=== PATIENT | male | born 1940 | race Caucasian/White ===

== ENCOUNTER → 2023-04-02 13:08 | Outpatient (REF) | payer BC, SELFPAY | LOC: RAD 13:08 | PROVIDERS: ATTENDING PHYSICIAN Internal Medicine Cardiovascular Disease; FAMILY PHYSICIAN Internal Medicine | DX: I65.23 Occlusion and stenosis of bilateral carotid arteries (principal) | CPT/HCPCS: 93880 ==

== ENCOUNTER → 2023-04-16 17:14 | Outpatient (REF) | payer BC, SELFPAY | LOC: RAD 17:14 | PROVIDERS: ATTENDING PHYSICIAN Family Medicine | DX: K59.00 Constipation, unspecified (principal); R10.84 Generalized abdominal pain | CPT/HCPCS: 74018 ==

== ENCOUNTER 2023-04-20 11:19 | Emergency (ER) | payer BC, SELFPAY ==
[2023-04-20 11:37] VITALS: BP 162/73
[2023-04-20 15:14] VITALS: BMI 22.1
[2023-04-20 15:22] VITALS: BP 153/68
--- NOTE | 2023-04-20 16:15 | ED.GENMED ---
History of Present Illness
<CACHORRO Steven - Last Filed: 04/21/23 18:40>
General
Chief Complaint: Bowel Problem
Source: patient
Exam Limitations: none
Time Seen by Provider: 04/20/23 14:38
Nursing documentation reviewed up to this point in time: agreed with
Travel History
Have you had any contact with someone who has COVID-19?: No
Do you have any symptoms of coronavirus? Fever > 100 degrees, chills, cough, shortness of breath, sore throat, loss of taste or smell, muscle aches, or headache?: No
History of Present Illness
History of Present Illness:
Patient is 82-year-old male that presents to the ER complaining of constipation. Patient has not had a bowel movement for at least 8 to 9 days. He complains of mild nausea but has been eating and has not no vomiting. His family doctor is aware.
He has been on lactulose without relief and also used an enema.
Patient had outpt xray on . I did review this is x-ray shows no evidence of intestinal obstruction mild fecal material in the right colon which is improved.
Past History
<CACHORRO Steven - Last Filed: 04/21/23 18:40>
Past History
ED Past Medical History: CAD, CVA (History of TIA.), HTN and NIDDM
ED Past Surgical History: Cardiac (CABG)
Social History
Tobacco: Non-smoker
Alcohol: Occasional
Drug: None
Personal:
Living: with family
Employment: Retired
Family History
Family History: Other (Noncontributory)
Review of Systems
<CACHORRO Steven - Last Filed: 04/21/23 18:40>
Review of Systems
Allergies reviewed?: Yes
All Other Systems: ROS reviewed and negative except as documented in HPI and ROS
Constitutional: Reports no symptoms
ABD/GI: Reports nausea, constipated and other (abdominal discomfort); Denies abdominal pain, vomiting or diarrhea
: Reports no symptoms
Musculoskeletal: Reports no symptoms
Skin: Reports no symptoms
Neurological: Reports no symptoms
<Irving Jerez Jr., PA-C - Last Filed: 04/20/23 23:44>
Physical Exam
Physical Exam:
GENERAL: Alert , in no apparent distress
EYE: pupils equal and reactive
NECK: Supple, no significant adenopathy.
ENT: o/p clr, mmm.
CARDIAC: Regular rate and rhythm .
LUNGS: Clear breath sounds bilaterally, no acute respiratory distress, no wheezes/rales/rhonchi
ABDOMEN: Soft, without focal tenderness, no r/g, no cvat
NEUROLOGICAL: Alert and oriented, no focal neuro deficits
SKIN: Warm and dry, skin intact.
MUSCULOSKELETAL: No edema, well perfused.
PSYCH: Normal and appropriate interaction.
Course
<CACHORRO Steven - Last Filed: 04/21/23 18:40>
Orders/Labs/Results
Orders:
Orders
04/20/23 16:16
Obstruct Series W/PA Chest [CR Obstruct Series W/pa Chest] Urgent
Comment:
Reason For Exam: constipation
04/20/23 17:27
Enema- Treatment ONCE
Type: Milk of Molasses
Amount: x1
04/20/23 19:16
IV Insert/Care/Rem.- Treatment PRN
04/20/23 19:56
Iohexol [Omnipaque] See Protocol PO NOW STA
04/20/23 19:58
Complete Blood Count/With Diff Urgent
04/20/23 20:38
Comprehensive Metabolic Panel Urgent
Lipase Urgent
04/20/23 20:49
0.9% Sodium Chloride 500 ml [Nss] 500 ml IV BOLUS
04/20/23 21:15
CT Abd/pel W Iv And Oral Contr Urgent
Comment:
Reason For Exam: abd pain constipation
Iohexol [Omnipaque] See Protocol PO NOW STA
04/20/23 23:40
Amoxicillin 875 mg/Clav 125 mg [Augmentin 875 mg/125 mg] 1 tablet PO NOW STA
Abnormal Lab Results
04/20/23 04/20/23 04/20/23
16: 18:30 19:58
RBC 3.77 L 10^6/uL
(4.70-6.10)
Hgb 12.2 L g/dL
(13.0-18.0)
Hct 33.4 L %
(39.0-52.0)
MCH 32.4 H pg
(27.0-31.0)
MPV 11.2 H fL
(7.4-10.4)
Absolute Lymphs (auto) 0.8 L 10^3/uL
(1.2-3.4)
Lymphocytes % 13.1 L %
(20.5-51.1)
Sodium
BUN
Creatinine
Glucose
POC Glucose 194 H mg/dl 180 H mg/dl
(70-99) (70-99)
04/20/23
20:38
RBC
Hgb
Hct
MCH
MPV
Absolute Lymphs (auto)
Lymphocytes %
Sodium 133 L mmol/L
(135-145)
BUN 33 H mg/dl
(9-20)
Creatinine 1.4 H mg/dL
(0.7-1.3)
Glucose 224 H mg/dl
(70-99)
POC Glucose
04/20/23 19:58
04/20/23 20:38
Vital Signs
Initial and Last Documented VS:
Initial Vital Signs
Temp Pulse Resp BP Pulse Ox
98.1 F 65 18 162/73 97
04/20/23 11:37 04/20/23 11:37 04/20/23 11:37 04/20/23 11:37 04/20/23 11:37
Last Documented Vital Signs
Temp Pulse Resp BP Pulse Ox
98.1 F 60 16 178/72 97
04/20/23 11:37 04/21/23 00:02 04/21/23 00:02 04/21/23 00:02 04/21/23 00:02
<Irving Jerez Jr., PA-C - Last Filed: 04/20/23 23:44>
Orders/Labs/Results
Orders:
Orders
04/20/23 16:16
Obstruct Series W/PA Chest [CR Obstruct Series W/pa Chest] Urgent
Comment:
Reason For Exam: constipation
04/20/23 17:27
Enema- Treatment ONCE
Type: Milk of Molasses
Amount: x1
04/20/23 19:16
IV Insert/Care/Rem.- Treatment PRN
04/20/23 19:56
Iohexol [Omnipaque] See Protocol PO NOW STA
04/20/23 19:58
Complete Blood Count/With Diff Urgent
04/20/23 20:38
Comprehensive Metabolic Panel Urgent
Lipase Urgent
04/20/23 20:49
0.9% Sodium Chloride 500 ml [Nss] 500 ml IV BOLUS
04/20/23 21:15
CT Abd/pel W Iv And Oral Contr Urgent
Comment:
Reason For Exam: abd pain constipation
Iohexol [Omnipaque] See Protocol PO NOW STA
04/20/23 23:40
Amoxicillin 875 mg/Clav 125 mg [Augmentin 875 mg/125 mg] 1 tablet PO NOW STA
Abnormal Lab Results
04/20/23 04/20/23 04/20/23
16:24 18:30 19:58
RBC 3.77 L 10^6/uL
(4.70-6.10)
Hgb 12.2 L g/dL
(13.0-18.0)
Hct 33.4 L %
(39.0-52.0)
MCH 32.4 H pg
(27.0-31.0)
MPV 11.2 H fL
(7.4-10.4)
Absolute Lymphs (auto) 0.8 L 10^3/uL
(1.2-3.4)
Lymphocytes % 13.1 L %
(20.5-51.1)
Sodium
BUN
Creatinine
Glucose
POC Glucose 194 H mg/dl 180 H mg/dl
(70-99) (70-99)
04/20/23
20:38
RBC
Hgb
Hct
MCH
MPV
Absolute Lymphs (auto)
Lymphocytes %
Sodium 133 L mmol/L
(135-145)
BUN 33 H mg/dl
(9-20)
Creatinine 1.4 H mg/dL
(0.7-1.3)
Glucose 224 H mg/dl
(70-99)
POC Glucose
04/20/23 19:58
04/20/23 20:38
Vital Signs
Initial and Last Documented VS:
Initial Vital Signs
Temp Pulse Resp BP Pulse Ox
98.1 F 65 18 162/73 97
04/20/23 11:37 04/20/23 11:37 04/20/23 11:37 04/20/23 11:37 04/20/23 11:37
Last Documented Vital Signs
Temp Pulse Resp BP Pulse Ox
98.1 F 60 16 178/72 97
04/20/23 11:37 04/21/23 00:02 04/21/23 00:02 04/21/23 00:02 04/21/23 00:02
<CACHORRO Steven - Last Filed: 04/21/23 18:40>
MDM/Problems Addressed
Differential Diagnosis Includes:
Not limited to: Bowel obs, diverticulitis
MDM/Problems Addressed:
Patient is 82-year-old male who presented to the ER complaining of constipation no bowel movement in at least 8 days. Seen by family doctor and started on lactulose. Patient had an outpatient x-ray. Patient denies any nausea vomiting. X-ray from
04/16 shows mild fecal material in the right colon no evidence of intestine obstruction. Patient requested and was given enema here however x-ray not truly consistent with constipation. On reexam patient very minimally tender lower abdominal region
will CT. Patient mentions he has some renal insufficiency last creatinine (02/10: 1.5 )oral contrast started will wait for chemistries then order ct. nml wbc. CAre of patient at this time transferred to BRUNO Bragg.
<Irving Jerez Jr., PA-C - Last Filed: 04/20/23 23:44>
MDM/Problems Addressed
MDM/Problems Addressed:
Patient is 82-year-old male who presented to the ER complaining of constipation no bowel movement in at least 8 days. Seen by family doctor and started on lactulose. Patient had an outpatient x-ray. Patient denies any nausea vomiting. X-ray from
04/16 shows mild fecal material in the right colon no evidence of intestine obstruction. Patient requested and was given enema here however x-ray not truly consistent with constipation. On reexam patient very minimally tender lower abdominal region
will CT. Patient mentions he has some renal insufficiency last creatinine (02/10: 1.5 )oral contrast started will wait for chemistries then order ct. nml wbc. CAre of patient at this time transferred to Kathleen Jerez PAC.
Ed Solitario PA-C//CT report received patient with potential proctitis and enteritis. Patient claims that he is now asymptomatic and has no abdominal pain ongoing. He was able to have a bowel movement. It appears unlikely that patient has emergent
pathology at this time it was he was offered to come into the hospital he feels symptoms are but he significantly preferred going home. He started on Augmentin and advised for very close primary care follow-up. Return precautions given.
<Irving Jerez Jr., PA-C - Last Filed: 04/20/23 23:44>
*Critical Care Note
Total Time (30-74mins, 75-104mins- exclusive of procedures): Not Applicable
ED Attending Note
<CACHORRO Steven - Last Filed: 04/21/23 18:40>
-
Portions of this chart may have been created with voice recognition software.� Occasional wrong word or��sound alike� substitutions may have occurred due to the inherent limitations of voice recognition software.
Discharge Plan
Departure
Patient Disposition: Home (Routine Discharge)
Date of Disposition: 04/20/23
Time of Disposition: 23:42
Patient with high blood pressure during this ER visit?: No
Condition: Good
Covid-19: Not Applicable
Discharge Problem:
Proctitis
Instructions: Constipation, Adult (DC)
Prescriptions:
New
amoxicillin-pot clavulanate 875-125 mg tablet
1 tab PO Q12H 7 Days Qty: 14 0RF
No Action
insulin aspart U-100 [Novolog FlexPen U-100 Insulin] 300 UNITS/3 ML insulin pen
5 - 8 units SC AC
Patient Comments:
SLIDING SCALE WITH BREAKFAST AND DINNER
Rx Instructions:
Sliding scale
zinc acetate 50 mg (zinc) Capsule
50 mg PO DAILY
pantoprazole 40 mg Tablet,Delayed Release (Dr/Ec)
40 mg PO DAILY 30 Days Qty: 30 0RF
acetaminophen 325 mg Tablet
650 mg PO Q4HPRN PRN (Reason: MILD PAIN) 30 Days Qty: 100 0RF
ascorbate calcium (vitamin C) 500 mg Tablet
500 mg PO DAILY
multivitamin Tablet
1 tab PO DAILY
coQ10 (ubiquinol) 100 mg Capsule
100 mg PO DAILY
Probiotic 3 billion cell Capsule
3,000 mmu cells PO DAILY
digestive enzymes Tablet
1 tab PO DAILY
Neuriva Original 100-100 mg Capsule
1 cap PO DAILY
clopidogrel 75 mg tablet
75 mg PO DAILY Qty: 90 3RF
lutein 20 mg Capsule
20 mg PO DAILY
curcumin-phosphatidylcholine 500 mg Capsule
50 mg PO DAILY
milk thistle
200 mg PO BID
olive leaf extract
1 cap PO DAILY
amlodipine 10 mg Tablet
10 mg PO DAILY Qty: 30 0RF
Rx Instructions:
Pleaes obtain refills from PCP/Cardiology
hydrochlorothiazide 25 mg Tablet
25 mg PO DAILY Qty: 30 0RF
Rx Instructions:
Pleaes obtain refills from PCP/Cardiology
metoprolol succinate 25 mg Tablet Extended Release 24 Hr
25 mg PO DAILY Qty: 30 0RF
Rx Instructions:
Pleaes obtain refills from PCP/Cardiology
Insulin Glargine Lantus [Lantus] 20 UNITS
Subcutaneous Insulin Syringe [Syringe-Insulin] 0 UNIT
As Directed mls/hr SC DAILY
Ordered By: Lauren Beaver PA-C
Last Taken: Unknown
aspirin 81 mg Tablet,Delayed Release (Dr/Ec)
81 mg PO DAILY Qty: 30 0RF
Referrals:
Jesús Sierra MD [Active] - Follow up in 5-7 days
Nereida Phillips MD [Family Provider] -
Activity Restrictions/Additional Instructions:
You came to the emergency department today with concerns of constipation abdominal pain. You are found to have potential proctitis and constipation. Please take the Augmentin twice daily for the next 7 days and follow-up closely with GI your
primary care doctor. Return to the emergency department immediately for any worsening, new or concerning symptoms.
Interventions
Interventions:
*Risk Screen - Suicide Last Done: 04/20/23 15:16
*General Assessment Last Done: 04/20/23 11:37
*Neglect/Abuse Screening Last Done: 04/20/23 11:37
ED- Fall Risk Assessment Last Done: 04/20/23 15:20
*ED COVID-19 Vaccine History Last Done: 04/20/23 15:14
*Nursing Disposition Last Done: 04/21/23 00:15
PE-Pjpizy-Wxalqpjamp Assessment Last Done: 04/20/23 20:36
Discharge Date and Time
Discharge Date/Time: 04/21/23 00:15
[2023-04-20 16:26] LABS: Glucose - Point of Care 194 mg/dl (70-99)
[2023-04-20 18:33] LABS: Glucose - Point of Care 180 mg/dl (70-99)
[2023-04-20 20:09] VITALS: BP 137/64
[2023-04-20 20:19] LABS: % Basophils 0.5 % (0-2); % Eosinophils 1.4 % (0-6); % Immature Granulocytes 0.5 % (0-0.5); % Lymphocytes 13.1 % (20.5-51.1); % Monocytes 9.3 % (1.7-9.3); % Neutrophils 75.2 % (42.2-75.2); Absolute Eosinophils 0.1 10^3/uL (0-0.7); Absolute Lymphocytes 0.8 10^3/uL (1.2-3.4); Absolute Monocytes 0.5 10^3/uL (0.1-0.6); Absolute Neutrophils 4.4 10^3/uL (1.4-6.5); Hematocrit 33.4 % (39.0-52.0); Hemoglobin 12.2 g/dL (13.0-18.0); Mean Corp Hgb Conc. 36.5 g/dL (33.0-37.0); Mean Corpuscular Hgb 32.4 pg (27.0-31.0); Mean Corpuscular Volume 88.6 fL (80.0-94.0); Mean Platelet Volume 11.2 fL (7.4-10.4); Nucleated Red Blood Cells % 0 % (-); Platelet Count 187 10^3/uL (130-400); Red Blood Cell Count 3.77 10^6/uL (4.70-6.10); Red Cell Dist. Width 11.9 % (11.5-14.5); White Blood Cell Count 5.8 10^3/uL (4.8-10.8)
[2023-04-20] MEDS: OMNIPAQUE 50 ML PO (20:39)
[2023-04-20 21:12] LABS: ALT (SGPT) 22 U/L (0-50); AST (SGOT) 23 U/L (17-59); Albumin 3.5 g/dl (3.5-5.0); Alkaline Phosphatase 64 U/L (38-126); Blood Urea Nitrogen 33 mg/dl (9-20); Calcium 9.2 mg/dl (8.4-10.2); Carbon Dioxide 26 mmol/L (22-30); Chloride 99 mmol/L (98-107); Estimated Creatinine Clearance 36 ml/min; Glucose 224 mg/dl (70-99); Potassium 3.9 mmol/L (3.5-5.1); Sodium 133 mmol/L (135-145); Total Bilirubin 0.4 mg/dl (0.2-1.3); Total Protein 6.3 g/dl (6.3-8.2); eGFR 50.49
[2023-04-20] MEDS: NSS 500 IV (21:35)
[2023-04-20 21:42] LABS: Lipase 115 U/L (23-300)
[2023-04-20] MEDS: AUGMENTIN 875 MG/125 MG 1 TABLET PO (23:59)
[2023-04-21 00:02] VITALS: BP 178/72
== END 2023-04-21 00:15 | disposition home or self-care (01) ==
LOC: EMR 11:19
PROVIDERS: Nurse Practitioner; EMERGENCY PHYSICIAN Emergency Medicine; FAMILY PHYSICIAN Family Medicine
DX: K62.89 Other specified diseases of anus and rectum (principal); N28.9 Disorder of kidney and ureter, unspecified; Z95.1 Presence of aortocoronary bypass graft; Z86.73 Personal history of transient ischemic attack (TIA), and cerebral infarction without residual deficits
CPT/HCPCS: 99285; 74022; 74177; 80053; 82962; 83690; 85025; Q9967

== ENCOUNTER 2023-04-24 09:52 | Emergency (ER) | payer BC, SELFPAY ==
[2023-04-24 10:06] VITALS: BP 164/74
--- NOTE | 2023-04-24 11:02 | ED.GENMED ---
History of Present Illness
General
Chief Complaint: Abdominal Pain
Source: patient and spouse
Time Seen by Provider: 04/24/23 10:50
Travel History
Have you had any contact with someone who has COVID-19?: No
Do you have any symptoms of coronavirus? Fever > 100 degrees, chills, cough, shortness of breath, sore throat, loss of taste or smell, muscle aches, or headache?: No
History of Present Illness
History of Present Illness:
82-year-old male with significant cardiac history, GERD, IBS, chronic kidney disease, insulin-dependent diabetic presenting the emergency department for the second time in less than a week for evaluation of constipation stating that despite being
evaluated here a few days ago and being started on Augmentin for possible colitis patient remains with inability to have a bowel movement and states he has not gone since this past Sunday patient had been using [id number] regimens prior to his
visit to the ER 4 days ago but has not used any since other than a glycerin suppository last night which she notes did not provide him with any relief. He notes minimal change to p.o. intake, but does endorse some mild nausea and upper abdominal
discomfort. He does endorse a sensation of needing to have a bowel movement but when he bears down he states there is no stool. Patient denies any fevers, chills, rigors, liquid stool, rectal pain, urinary symptoms or any other concerns. Patient
contacted GI and was able to get appointment with them on more, contacted his primary care physician today and was recommended to come to the ER for further evaluation
Past History
Past History
ED Past Medical History: CAD, CVA (History of TIA.), GERD, HTN, IDDM, Renal failure and Valvular disease
ED Past Surgical History: Cardiac (CABG), Orthopedic and Tonsilectomy
Social History
Tobacco: Non-smoker
Alcohol: Occasional
Drug: None
Personal:
Living: with family
Employment: Retired
Family History
Family History: Other (Noncontributory)
Review of Systems
Review of Systems
All Other Systems: ROS reviewed and negative except as documented in HPI and ROS
Phy Exam
Physical Exam
Physical Exam:
GENERAL: Alert , in no apparent distress
EYE: clear conjunctiva b/l
HEAD: NCAT
ENT: o/p clr, mmm.
CARDIAC: Regular rate and rhythm .
LUNGS: Clear breath sounds bilaterally, no acute respiratory distress, no wheezes/rales/rhonchi
ABDOMEN: Soft, without focal tenderness, no r/g, no cvat, negative Givens sign, no tenderness at McBurney's point
Rectal exam: No stool appreciated within the rectum
NEUROLOGICAL: Alert and oriented
SKIN: Warm and dry, skin intact.
MUSCULOSKELETAL: well perfused.
PSYCH: Normal and appropriate interaction.
Scores
Heart Failure Risk
Heart Failure Risk Score: Not Applicable
Heart Score for Chest Pain Patients
STEMI patient?: Not applicable
Withdrawal Assessment of Alcohol
Withdrawal Assessment Completed?: Not applicable
Course
Orders/Labs/Results
Orders:
Orders
04/24/23 11:00
Magnesium Citrate [Citroma] 300 ml PO ONCE ONE
CR Obstruct Series W/pa Chest Urgent
Comment:
Reason For Exam: constipation
04/24/23 11:15
Complete Blood Count/With Diff Urgent
Comprehensive Metabolic Panel Urgent
Lipase Urgent
04/24/23 12:36
Urinalysis Reflex To Culture Urgent
Date Specimen was Collected: 04/24/23
Time Specimen was Collected: 12:35
Urine Microscopic Reflex Cult Urgent
Abnormal Lab Results
04/24/23 04/24/23
11:15 12:36
RBC 3.67 L 10^6/uL
(4.70-6.10)
Hgb 11.8 L g/dL
(13.0-18.0)
Hct 32.9 L %
(39.0-52.0)
MCH 32.2 H pg
(27.0-31.0)
MPV 11.2 H fL
(7.4-10.4)
Absolute Lymphs (auto) 0.7 L 10^3/uL
(1.2-3.4)
Neutrophils % 76.6 H %
(42.2-75.2)
Lymphocytes % 11.9 L %
(20.5-51.1)
Sodium 134 L mmol/L
(135-145)
BUN 31 H mg/dl
(9-20)
Creatinine 1.6 H mg/dL
(0.7-1.3)
Glucose 126 H mg/dl
(70-99)
Urine Bacteria (Reflex) Few A
(Negative)
Urine Albumin (Reflex) 2+ A
(Neg - Trace)
04/24/23 11:15
04/24/23 11:15
Vital Signs
Initial and Last Documented VS:
Initial Vital Signs
Temp Pulse Resp BP Pulse Ox
98.4 F 65 20 164/74 99
04/24/23 10:06 04/24/23 10:06 04/24/23 10:06 04/24/23 10:06 04/24/23 10:06
Last Documented Vital Signs
Temp Pulse Resp BP Pulse Ox
98.4 F 65 16 141/69 95
04/24/23 10:06 04/24/23 12:00 04/24/23 12:00 04/24/23 12:00 04/24/23 12:00
MDM/Problems Addressed
Differential Diagnosis Includes:
Fecal impaction, constipation, colitis, enteritis, stercoral colitis
MDM/Problems Addressed:
82-year-old male presenting back to the emergency department for evaluation of continued constipation despite recent visit to the ER today. Patient overall has mostly discontinued any of the [id number] medications he had been taking for
constipation other than a glycerin suppository last night that he did not have any relief with. Overall patient's exam is reassuring as his abdomen is soft without any focal tenderness. He has normoactive bowel sounds. Rectal exam did not show
any fecal impaction. I reviewed CT of the abdomen pelvis that was done on April 19 which shows minor degree of rectal wall thickening but could be related to a mild proctitis. There is mild to moderate colonic stool burden but no other findings on
this exam. Given recent CT I decided to obtain a obstructive series today. Will recheck labs, magnesium citrate ordered although I do have some degree of concern over continuing to provide patient with enemas if they are not providing him any
relief.
*Radiology
Radiology exam reviewed: preliminary read by ED provider (Contrast remains within the bowel and there is no sign of perforation)
*Pulse Oximetry
Patient hypoxic: no
*Critical Care Note
Total Time (30-74mins, 75-104mins- exclusive of procedures): Not Applicable
Data Reviewed
Review of Other/Old Records Reveals: Labs, Records and Radiology Studies
Source: patient, records and spouse
Patient Management
Discussion with other providers: PCP and Trolley Worker
Escalation/DeEscalation of care consider admission/obs:
Patient's workup remains largely unremarkable outside of he continues to have contrast within the bowel and signs of continued constipation. I suspect slow transit constipation as a cause of patient's symptoms. Given his return visit to the ER I
did contact GI and notified them of the findings. They recommend a regimen of MiraLAX twice daily, Senokot at bedtime and for him to use enemas as needed for continued constipation. If this does not work patient can take Linzess 290 mcg. I
provided the patient with a prescription for all 3 of these medications and reviewed how to take them. He will continue with his follow-up visit on May 02. Primary care provider was also notified.
ED Attending Note
-
Portions of this chart may have been created with voice recognition software.� Occasional wrong word or��sound alike� substitutions may have occurred due to the inherent limitations of voice recognition software.
Discharge Plan
Departure
Patient Disposition: Home (Routine Discharge)
Date of Disposition: 04/24/23
Time of Disposition: 12:45
Patient with high blood pressure during this ER visit?: Yes
Discharge Problem:
Constipation
Instructions: Constipation, Adult (DC)
Prescriptions:
New
polyethylene glycol 3350 [Miralax] 17 gram powder in packet
17 g PO BID Qty: 30 0RF
sennosides [Senokot] 8.6 mg tablet
8.6 mg PO HS Qty: 20 0RF
Linzess 290 mcg capsule
290 mcg PO DAILY Qty: 30 0RF
No Action
insulin aspart U-100 [Novolog FlexPen U-100 Insulin] 300 UNITS/3 ML insulin pen
5 - 8 units SC AC
Patient Comments:
SLIDING SCALE WITH BREAKFAST AND DINNER
Rx Instructions:
Sliding scale
zinc acetate 50 mg (zinc) Capsule
50 mg PO DAILY
acetaminophen 325 mg Tablet
650 mg PO Q4HPRN PRN (Reason: MILD PAIN) 30 Days Qty: 100 0RF
ascorbate calcium (vitamin C) 500 mg Tablet
500 mg PO DAILY
multivitamin Tablet
1 tab PO DAILY
coQ10 (ubiquinol) 100 mg Capsule
100 mg PO DAILY
Probiotic 3 billion cell Capsule
3,000 mmu cells PO DAILY
digestive enzymes Tablet
1 tab PO DAILY
Neuriva Original 100-100 mg Capsule
1 cap PO DAILY
lutein 20 mg Capsule
20 mg PO DAILY
curcumin-phosphatidylcholine 500 mg Capsule
50 mg PO DAILY
milk thistle
200 mg PO BID
olive leaf extract
1 cap PO DAILY
amlodipine 10 mg Tablet
10 mg PO DAILY Qty: 30 0RF
Rx Instructions:
Pleaes obtain refills from PCP/Cardiology
hydrochlorothiazide 25 mg Tablet
25 mg PO DAILY Qty: 30 0RF
Rx Instructions:
Pleaes obtain refills from PCP/Cardiology
amoxicillin-pot clavulanate 875-125 mg tablet
1 tab PO Q12H 7 Days Qty: 14 0RF
hydralazine 10 mg Tablet
10 mg PO DAILY
carvedilol 12.5 mg Tablet
12.5 mg PO DAILY
Levemir U-100 Insulin 100 unit/mL Solution
19 unit SC HS
aspirin 81 mg Tablet,Delayed Release (Dr/Ec)
81 mg PO DAILY Qty: 30 0RF
Referrals:
Krishna Lock I., DO [Family Provider] -
Interventions
Interventions:
*Risk Screen - Suicide Last Done: 04/24/23 10:06
*General Assessment Last Done: 04/24/23 10:06
*Neglect/Abuse Screening Last Done: 04/24/23 10:06
ED- Fall Risk Assessment Last Done: 04/24/23 10:56
*ED COVID-19 Vaccine History Last Done: 04/24/23 10:44
*Nursing Disposition Last Done: 04/24/23 13:16
QR-Fyzzrf-Jpapkbxnro Assessment Last Done: 04/24/23 10:56
Discharge Date and Time
Discharge Date/Time: 04/24/23 13:17
[2023-04-24] MEDS: CITROMA 300 ML PO (11:07)
[2023-04-24 11:21] LABS: % Basophils 0.7 % (0-2); % Eosinophils 1.3 % (0-6); % Immature Granulocytes 0.3 % (0-0.5); % Lymphocytes 11.9 % (20.5-51.1); % Monocytes 9.2 % (1.7-9.3); % Neutrophils 76.6 % (42.2-75.2); Absolute Eosinophils 0.1 10^3/uL (0-0.7); Absolute Lymphocytes 0.7 10^3/uL (1.2-3.4); Absolute Monocytes 0.6 10^3/uL (0.1-0.6); Absolute Neutrophils 4.6 10^3/uL (1.4-6.5); Hematocrit 32.9 % (39.0-52.0); Hemoglobin 11.8 g/dL (13.0-18.0); Mean Corp Hgb Conc. 35.9 g/dL (33.0-37.0); Mean Corpuscular Hgb 32.2 pg (27.0-31.0); Mean Corpuscular Volume 89.6 fL (80.0-94.0); Mean Platelet Volume 11.2 fL (7.4-10.4); Nucleated Red Blood Cells % 0 % (-); Platelet Count 173 10^3/uL (130-400); Red Blood Cell Count 3.67 10^6/uL (4.70-6.10); Red Cell Dist. Width 11.9 % (11.5-14.5)
[2023-04-24 11:37] LABS: ALT (SGPT) 26 U/L (0-50); AST (SGOT) 29 U/L (17-59); Albumin 3.9 g/dl (3.5-5.0); Alkaline Phosphatase 88 U/L (38-126); Blood Urea Nitrogen 31 mg/dl (9-20); Calcium 8.9 mg/dl (8.4-10.2); Carbon Dioxide 27 mmol/L (22-30); Chloride 104 mmol/L (98-107); Glucose 126 mg/dl (70-99); Lipase 106 U/L (23-300); Potassium 4.1 mmol/L (3.5-5.1); Sodium 134 mmol/L (135-145); Total Bilirubin 0.4 mg/dl (0.2-1.3); Total Protein 6.5 g/dl (6.3-8.2); eGFR 43.02
[2023-04-24 12:00] VITALS: BP 141/69
[2023-04-24 12:48] LABS: Urine Albumin 2+ (Neg - Trace); Urine Bilirubin Negative (Negative); Urine Character Clear (Clear); Urine Color Yellow; Urine Glucose Negative (Negative); Urine Ketone Negative (Negative); Urine Leukocyte Negative (Negative); Urine Nitrite Negative (Negative); Urine Occult Blood Negative (Negative); Urine Urobilinogen Negative (Neg - 1+)
[2023-04-24 12:57] LABS: Urine Bacteria Few (Negative); Urine Red Blood Cell 0-2 /HPF (0-2); Urine Urothelial Cell 0-2 /LPF (FEW); Urine White Cell 0-2 /HPF (0-5)
== END 2023-04-24 13:17 | disposition home or self-care (01) ==
LOC: EMR 09:52
PROVIDERS: Physician Assistant Medical; EMERGENCY PHYSICIAN Emergency Medicine; FAMILY PHYSICIAN Internal Medicine
DX: K59.00 Constipation, unspecified (principal); K21.9 Gastro-esophageal reflux disease without esophagitis; K58.9 Irritable bowel syndrome, unspecified; I12.9 Hypertensive chronic kidney disease with stage 1 through stage 4 chronic kidney disease, or unspecified chronic kidney disease; E11.22 Type 2 diabetes mellitus with diabetic chronic kidney disease; N18.9 Chronic kidney disease, unspecified; I25.10 Atherosclerotic heart disease of native coronary artery without angina pectoris; Z86.73 Personal history of transient ischemic attack (TIA), and cerebral infarction without residual deficits; Z95.1 Presence of aortocoronary bypass graft
CPT/HCPCS: 99283; 74022; 80053; 81003; 81015; 83690; 85025

== ENCOUNTER → 2023-05-07 09:28 | Outpatient (REF) | payer BC, SELFPAY ==
[2023-05-07 10:39] LABS: % Basophils 0.5 % (0-2); % Eosinophils 2.3 % (0-6); % Immature Granulocytes 0.6 % (0-0.5); % Lymphocytes 11.1 % (20.5-51.1); % Monocytes 8.5 % (1.7-9.3); Absolute Eosinophils 0.2 10^3/uL (0-0.7); Absolute Immature Granulocytes 0.1 10^3/uL (0-0.05); Absolute Lymphocytes 0.9 10^3/uL (1.2-3.4); Absolute Monocytes 0.7 10^3/uL (0.1-0.6); Hematocrit 36.1 % (39.0-52.0); Hemoglobin 12.4 g/dL (13.0-18.0); Mean Corp Hgb Conc. 34.3 g/dL (33.0-37.0); Nucleated Red Blood Cells % 0 % (-); Platelet Count 218 10^3/uL (130-400); Red Blood Cell Count 3.88 10^6/uL (4.70-6.10); Red Cell Dist. Width 12.2 % (11.5-14.5); White Blood Cell Count 7.8 10^3/uL (4.8-10.8)
[2023-05-07 11:06] LABS: ALT (SGPT) 26 U/L (0-50); AST (SGOT) 27 U/L (17-59); Albumin 4.2 g/dl (3.5-5.0); Alkaline Phosphatase 85 U/L (38-126); Blood Urea Nitrogen 33 mg/dl (9-20); Calcium 9.5 mg/dl (8.4-10.2); Carbon Dioxide 27 mmol/L (22-30); Chloride 101 mmol/L (98-107); Glucose 144 mg/dl (70-99); HDL Cholesterol 65 mg/dl; LDL Cholesterol, Calculated 129 mg/dl; Potassium 4.2 mmol/L (3.5-5.1); Sodium 137 mmol/L (135-145); Total Bilirubin 0.4 mg/dl (0.2-1.3); Total Cholesterol 237 mg/dl (50-199); Triglyceride 215 mg/dl (10-149); Very Low Density Lipoprotein 43 mg/dl (0-30); eGFR 55.19
[2023-05-07 11:33] LABS: TSH Reflex To Free T4 2.93 uIU/ml (0.47-4.68)
[2023-05-07 14:01] LABS: Microalbumin, Random Urine > 57.0 mg/dl (0.6-1.7)
== END ==
LOC: REG 09:28
PROVIDERS: ATTENDING PHYSICIAN Internal Medicine; FAMILY PHYSICIAN Internal Medicine Gastroenterology
DX: K59.09 Other constipation (principal); I10 Essential (primary) hypertension; E78.5 Hyperlipidemia, unspecified; I65.23 Occlusion and stenosis of bilateral carotid arteries; E11.65 Type 2 diabetes mellitus with hyperglycemia
CPT/HCPCS: 36415; 80053; 80061; 82043; 82570; 83036; 84443; 85025

== ENCOUNTER 2023-07-07 11:42 | Emergency (ER) | payer BC, SELFPAY ==
[2023-07-07 11:47] VITALS: BP 133/86
[2023-07-07 11:57] VITALS: BP 177/68
[2023-07-07 11:58] VITALS: BMI 21.0
[2023-07-07 12:00] VITALS: BP 182/79
[2023-07-07 12:18] LABS: % Basophils 0.4 % (0-2); % Eosinophils 1.2 % (0-6); % Immature Granulocytes 0.6 % (0-0.5); % Lymphocytes 10.7 % (20.5-51.1); % Monocytes 8.4 % (1.7-9.3); % Neutrophils 78.7 % (42.2-75.2); Absolute Eosinophils 0.1 10^3/uL (0-0.7); Absolute Lymphocytes 0.7 10^3/uL (1.2-3.4); Absolute Monocytes 0.6 10^3/uL (0.1-0.6); Absolute Neutrophils 5.5 10^3/uL (1.4-6.5); Hematocrit 34.8 % (39.0-52.0); Hemoglobin 12.5 g/dL (13.0-18.0); Mean Corp Hgb Conc. 35.9 g/dL (33.0-37.0); Mean Corpuscular Hgb 32.2 pg (27.0-31.0); Mean Corpuscular Volume 89.7 fL (80.0-94.0); Mean Platelet Volume 10.6 fL (7.4-10.4); Nucleated Red Blood Cells % 0 % (-); Platelet Count 211 10^3/uL (130-400); Red Blood Cell Count 3.88 10^6/uL (4.70-6.10); Red Cell Dist. Width 12.2 % (11.5-14.5); White Blood Cell Count 6.9 10^3/uL (4.8-10.8)
[2023-07-07 12:35] LABS: ALT (SGPT) 34 U/L (0-50); AST (SGOT) 35 U/L (17-59); Alkaline Phosphatase 100 U/L (38-126); Blood Urea Nitrogen 34 mg/dl (9-20); Calcium 9.1 mg/dl (8.4-10.2); Carbon Dioxide 26 mmol/L (22-30); Chloride 97 mmol/L (98-107); Estimated Creatinine Clearance 43 ml/min; Glucose 239 mg/dl (70-99); Potassium 4.1 mmol/L (3.5-5.1); Sodium 131 mmol/L (135-145); Total Bilirubin 0.4 mg/dl (0.2-1.3); Total Protein 6.8 g/dl (6.3-8.2); eGFR > 60.00
--- NOTE | 2023-07-07 12:39 | ED.GENMED ---
History of Present Illness
General
Chief Complaint: Chest Pain
Time Seen by Provider: 07/07/23 12:13
Travel History
Have you had any contact with someone who has COVID-19?: No
Do you have any symptoms of coronavirus? Fever > 100 degrees, chills, cough, shortness of breath, sore throat, loss of taste or smell, muscle aches, or headache?: No
History of Present Illness
History of Present Illness:
82-year-old male with history of aortic stenosis status post TAVR, CAD status post stent x 5, hypertension, hyperlipidemia, prior TIA, carotid stenosis, peripheral vascular disease, and status post pacemaker placement presents to the emergency
department for evaluation of substernal chest pain that developed upon awakening today at 530. Pain persisted throughout the morning until he took several [id number] antacids which improved the symptoms. Denies any complaint at present. He
is uncertain if the symptoms are at all comparable to his past angina. Denies any associated fever, chills, sweats, shortness of breath, leg swelling, or pleuritic pain.
Past History
Past History
ED Past Medical History: CAD, CVA (History of TIA.), GERD, HTN, IDDM, Renal failure and Valvular disease
ED Past Surgical History: Cardiac (CABG), Orthopedic and Tonsilectomy
Social History
Tobacco: Non-smoker
Alcohol: Occasional
Drug: None
Personal:
Living: with family
Employment: Retired
Family History
Family History: Other (Noncontributory)
Review of Systems
Review of Systems
Allergies reviewed?: Yes
All Other Systems: ROS reviewed and negative except as documented in HPI and ROS
Phy Exam
Physical Exam
Physical Exam:
GEN: Well appearing, NAD, WDWN
Eyes: PERRLA, EOMs intact, no scleral icterus
HENT: NCAT, oral mucosa moist
Lungs: CTAB, no wheezes, rales, rhonchi, normal chest wall excursion
Cardiac: RRR, no M/R/G, no peripheral edema. Radial pulses 2+ bilat
Abdomen: S, NT, ND, NABS, no masses or hepatosplenomegaly
Neuro: AO x 3
MSK: No gross deformity or ecchymosis. No edema. No digital clubbing
Skin: No rashes, petechiae. Normal color, no pallor or jaundice.
Psych: Calm, cooperative, proper hygiene
Scores
Heart Score for Chest Pain Patients
STEMI patient?: No
History: Moderately Suspicious
ECG: Nonspecific Repolarization
Age: >/= 65 years
Risk Factors: >/= 3 Risk Factors or History of CAD
Troponin: </= Normal Limit
Heart Score for Chest Pain Patients: 6
Heart Score Risk: 20.3% MACE over next 6 weeks
Course
Orders/Labs/Results
Orders:
Orders
07/07/23 11:44
EKG [Electrocardiogram (*1)] Urgent
Reason for Study: Chest Pain
EKG- Treatment ONCE
07/07/23 12:02
Complete Blood Count/With Diff Urgent
Comprehensive Metabolic Panel Urgent
Troponin I Urgent
07/07/23 12:24
CR Chest - 2 Views Urgent
Comment:
Reason For Exam: chest pain
07/07/23 13:28
EKG- Treatment ONCE
07/07/23 14:52
Troponin I Routine
07/07/23 15:00
EKG [Electrocardiogram (*1)] Routine
Reason for Study: Chest Pain
07/07/23 15:32
Insulin Aspart [NOVOLOG vial] 3 units SC NOW STA
Abnormal Lab Results
07/07/23 07/07/23
12:02 15:26
RBC 3.88 L 10^6/uL
(4.70-6.10)
Hgb 12.5 L g/dL
(13.0-18.0)
Hct 34.8 L %
(39.0-52.0)
MCH 32.2 H pg
(27.0-31.0)
MPV 10.6 H fL
(7.4-10.4)
Absolute Lymphs (auto) 0.7 L 10^3/uL
(1.2-3.4)
Immature Gran % 0.6 H %
(0-0.5)
Neutrophils % 78.7 H %
(42.2-75.2)
Lymphocytes % 10.7 L %
(20.5-51.1)
Sodium 131 L mmol/L
(135-145)
Chloride 97 L mmol/L
(98-107)
BUN 34 H mg/dl
(9-20)
Glucose 239 H mg/dl
(70-99)
POC Glucose 192 H mg/dl
(70-99)
07/07/23 12:02
07/07/23 12:02
Vital Signs
Initial and Last Documented VS:
Initial Vital Signs
Temp Pulse Resp BP Pulse Ox
98.2 F 80 18 133/86 97
07/07/23 11:47 07/07/23 11:47 07/07/23 11:47 07/07/23 11:47 07/07/23 11:47
Last Documented Vital Signs
Temp Pulse Resp BP Pulse Ox
98.2 F 71 9 159/69 97
07/07/23 11:47 07/07/23 16:30 07/07/23 16:30 07/07/23 15:27 07/07/23 16:30
MDM/Problems Addressed
MDM/Problems Addressed:
82-year-old male presents with vague central chest discomfort that had resolved on arrival. He notes that it improved after taking an antiacid. His EKG is nonischemic and troponin is negative x 2. He did note initial onset of heart palpitations,
pacemaker device interrogation was unremarkable with no cardiac events detected. Will refer to his commissioning agent through the chest pain hotline given that his symptoms have resolved on evaluation
Comment
Comment:
EKG independently interpreted by me shows normal sinus rhythm at a rate of 86 with a first-degree AV block. There are ST depressions laterally that are consistent with LVH, new compared to past EKG
*Critical Care Note
Total Time (30-74mins, 75-104mins- exclusive of procedures): Not Applicable
ED Attending Note
-
Portions of this chart may have been created with voice recognition software.� Occasional wrong word or��sound alike� substitutions may have occurred due to the inherent limitations of voice recognition software.
Discharge Plan
Departure
Patient Disposition: Home (Routine Discharge)
Date of Disposition: 07/07/23
Time of Disposition: 16:32
Patient with high blood pressure during this ER visit?: No
Discharge Problem:
Atypical chest pain
Instructions: Chest Pain CBC Follow Up
Prescriptions:
No Action
insulin aspart U-100 [Novolog FlexPen U-100 Insulin] 300 UNITS/3 ML insulin pen
5 - 8 units SC AC
Patient Comments:
SLIDING SCALE WITH BREAKFAST AND DINNER
Rx Instructions:
Sliding scale
zinc acetate 50 mg (zinc) Capsule
50 mg PO DAILY
acetaminophen 325 mg Tablet
650 mg PO Q4HPRN PRN (Reason: MILD PAIN) 30 Days Qty: 100 0RF
ascorbate calcium (vitamin C) 500 mg Tablet
500 mg PO DAILY
multivitamin Tablet
1 tab PO DAILY
coQ10 (ubiquinol) 100 mg Capsule
100 mg PO DAILY
Probiotic 3 billion cell Capsule
3,000 mmu cells PO DAILY
digestive enzymes Tablet
1 tab PO DAILY
Neuriva Original 100-100 mg Capsule
1 cap PO DAILY
lutein 20 mg Capsule
20 mg PO DAILY
curcumin-phosphatidylcholine 500 mg Capsule
50 mg PO DAILY
milk thistle
200 mg PO BID
olive leaf extract
1 cap PO DAILY
amlodipine 10 mg Tablet
10 mg PO DAILY Qty: 30 0RF
Rx Instructions:
Pleaes obtain refills from PCP/Cardiology
hydrochlorothiazide 25 mg Tablet
25 mg PO DAILY Qty: 30 0RF
Rx Instructions:
Pleaes obtain refills from PCP/Cardiology
amoxicillin-pot clavulanate 875-125 mg tablet
1 tab PO Q12H 7 Days Qty: 14 0RF
hydralazine 10 mg Tablet
10 mg PO DAILY
carvedilol 12.5 mg Tablet
12.5 mg PO DAILY
Levemir U-100 Insulin 100 unit/mL Solution
19 unit SC HS
polyethylene glycol 3350 [Miralax] 17 gram powder in packet
17 g PO BID Qty: 30 0RF
sennosides [Senokot] 8.6 mg tablet
8.6 mg PO HS Qty: 20 0RF
Linzess 290 mcg capsule
290 mcg PO DAILY Qty: 30 0RF
aspirin 81 mg Tablet,Delayed Release (Dr/Ec)
81 mg PO DAILY Qty: 30 0RF
Referrals:
Krishna Lock I., DO [Family Provider] -
Activity Restrictions/Additional Instructions:
Return if your symptoms worsen
Interventions
Interventions:
*Risk Screen - Suicide Last Done: 07/07/23 11:47
*General Assessment Last Done: 07/07/23 11:49
*Neglect/Abuse Screening Last Done: 07/07/23 11:47
*ED COVID-19 Vaccine History Last Done: 07/07/23 11:49
*Nursing Disposition Last Done: 07/07/23 16:56
ED- Cardiac Assessment Last Done: 07/07/23 12:05
Discharge Date and Time
Discharge Date/Time: 07/07/23 16:57
Print Language: LATVIAN
[2023-07-07 12:45] LABS: Troponin I 0.013 ng/ml
[2023-07-07 14:00] VITALS: BP 160/74
[2023-07-07 15:27] VITALS: BP 159/69
[2023-07-07 15:28] LABS: Glucose - Point of Care 192 mg/dl (70-99)
[2023-07-07] MEDS: NOVOLOG vial 3 UNITS SC (15:37)
[2023-07-07 16:09] LABS: Troponin I 0.013 ng/ml
== END 2023-07-07 16:57 | disposition home or self-care (01) ==
LOC: EMR 11:42
PROVIDERS: Physician Assistant; EMERGENCY PHYSICIAN Emergency Medicine; FAMILY PHYSICIAN Internal Medicine
DX: R07.89 Other chest pain (principal); I10 Essential (primary) hypertension; I25.10 Atherosclerotic heart disease of native coronary artery without angina pectoris; E78.5 Hyperlipidemia, unspecified; Z95.0 Presence of cardiac pacemaker
CPT/HCPCS: 99285; 96372; 93288; 71046; 80053; 82962; 84484; 85025; 93005

== ENCOUNTER → 2023-08-06 08:24 | Outpatient (REF) | payer BC, SELFPAY ==
[2023-08-06 09:07] LABS: % Basophils 0.6 % (0-2); % Eosinophils 2.2 % (0-6); % Immature Granulocytes 0.5 % (0-0.5); % Lymphocytes 14.5 % (20.5-51.1); % Monocytes 9.5 % (1.7-9.3); % Neutrophils 72.7 % (42.2-75.2); Absolute Eosinophils 0.1 10^3/uL (0-0.7); Absolute Lymphocytes 0.9 10^3/uL (1.2-3.4); Absolute Monocytes 0.6 10^3/uL (0.1-0.6); Absolute Neutrophils 4.7 10^3/uL (1.4-6.5); Hematocrit 34.9 % (39.0-52.0); Hemoglobin 12.2 g/dL (13.0-18.0); Mean Corpuscular Hgb 32.2 pg (27.0-31.0); Mean Corpuscular Volume 92.1 fL (80.0-94.0); Nucleated Red Blood Cells % 0 % (-); Platelet Count 210 10^3/uL (130-400); Red Blood Cell Count 3.79 10^6/uL (4.70-6.10); Red Cell Dist. Width 12.1 % (11.5-14.5); White Blood Cell Count 6.4 10^3/uL (4.8-10.8)
[2023-08-06 09:52] LABS: ALT (SGPT) 30 U/L (0-50); AST (SGOT) 33 U/L (17-59); Albumin 4.2 g/dl (3.5-5.0); Alkaline Phosphatase 89 U/L (38-126); Blood Urea Nitrogen 45 mg/dl (9-20); Calcium 9.4 mg/dl (8.4-10.2); Carbon Dioxide 24 mmol/L (22-30); Chloride 102 mmol/L (98-107); Glucose 123 mg/dl (70-99); HDL Cholesterol 67 mg/dl; Iron 115 ug/dl (49-181); LDL Cholesterol, Calculated 75 mg/dl; Potassium 4.1 mmol/L (3.5-5.1); Sodium 137 mmol/L (135-145); Total Bilirubin 0.5 mg/dl (0.2-1.3); Total Cholesterol 176 mg/dl (50-199); Triglyceride 173 mg/dl (10-149); Very Low Density Lipoprotein 34 mg/dl (0-30); eGFR 43.02
[2023-08-06 10:00] LABS: Percent Saturation 43 % (20-50); Total Iron Binding Capacity 266 ug/dl (261-462)
[2023-08-06 10:16] LABS: Glycohemoglobin (HgbA1c) 7.8 % (4.0-5.6)
[2023-08-06 10:17] LABS: Ferritin 88.8 ng/ml (17.9-464.0)
== END ==
LOC: REG 08:24
PROVIDERS: ATTENDING PHYSICIAN Internal Medicine; FAMILY PHYSICIAN Physician Assistant
DX: D64.9 Anemia, unspecified (principal); E78.5 Hyperlipidemia, unspecified; E11.65 Type 2 diabetes mellitus with hyperglycemia
CPT/HCPCS: 36415; 80053; 80061; 82728; 83036; 83540; 83550; 85025

== ENCOUNTER → 2023-08-07 11:10 | Outpatient (REF) | payer BC, SELFPAY | LOC: RCS 11:10 | PROVIDERS: ATTENDING PHYSICIAN Internal Medicine Cardiovascular Disease; FAMILY PHYSICIAN Internal Medicine | DX: Z95.2 Presence of prosthetic heart valve (principal) | CPT/HCPCS: 93306 ==

== ENCOUNTER 2023-08-11 14:50 | Emergency (ER) | payer BC, SELFPAY ==
[2023-08-11 14:52] VITALS: BP 171/85
[2023-08-11 15:10] LABS: % Basophils 0.5 % (0-2); % Immature Granulocytes 0.5 % (0-0.5); % Lymphocytes 11.3 % (20.5-51.1); % Monocytes 8.2 % (1.7-9.3); % Neutrophils 78.5 % (42.2-75.2); Absolute Eosinophils 0.1 10^3/uL (0-0.7); Absolute Lymphocytes 0.9 10^3/uL (1.2-3.4); Absolute Monocytes 0.7 10^3/uL (0.1-0.6); Absolute Neutrophils 6.4 10^3/uL (1.4-6.5); Hematocrit 31.7 % (39.0-52.0); Hemoglobin 11.5 g/dL (13.0-18.0); Mean Corp Hgb Conc. 36.3 g/dL (33.0-37.0); Mean Corpuscular Hgb 32.2 pg (27.0-31.0); Mean Corpuscular Volume 88.8 fL (80.0-94.0); Mean Platelet Volume 10.4 fL (7.4-10.4); Nucleated Red Blood Cells % 0 % (-); Platelet Count 203 10^3/uL (130-400); Red Blood Cell Count 3.57 10^6/uL (4.70-6.10); White Blood Cell Count 8.2 10^3/uL (4.8-10.8)
[2023-08-11 15:32] LABS: ALT (SGPT) 29 U/L (0-50); AST (SGOT) 35 U/L (17-59); Albumin 4.1 g/dl (3.5-5.0); Alkaline Phosphatase 88 U/L (38-126); Blood Urea Nitrogen 34 mg/dl (9-20); Calcium 9.1 mg/dl (8.4-10.2); Carbon Dioxide 25 mmol/L (22-30); Chloride 97 mmol/L (98-107); Glucose 139 mg/dl (70-99); Lipase 127 U/L (23-300); Potassium 3.9 mmol/L (3.5-5.1); Sodium 132 mmol/L (135-145); Total Bilirubin 0.4 mg/dl (0.2-1.3); Total Protein 6.7 g/dl (6.3-8.2); eGFR 50.49
--- NOTE | 2023-08-11 17:31 | ED.GENMED ---
History of Present Illness
General
Chief Complaint: Abdominal Pain
Source: patient, records and family
Exam Limitations: none
Time Seen by Provider: 08/11/23 17:09
Nursing documentation reviewed up to this point in time: agreed with
History of Present Illness
History of Present Illness:
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
Past History
Past History
ED Past Medical History: CAD, CVA (History of TIA.), GERD, HTN, IDDM, Renal failure and Valvular disease
ED Past Surgical History: Cardiac (CABG), Orthopedic and Tonsilectomy
Social History
Tobacco: Non-smoker
Alcohol: Occasional
Drug: None
Personal:
Living: with family
Employment: Retired
Family History
Family History: Other (Noncontributory)
Review of Systems
Review of Systems
All Other Systems: Not applicable
Constitutional: Denies fever or fatigue
Respiratory: Reports no symptoms
Cardiac: Reports chest pain
ABD/GI: Reports abdominal pain and nausea
: Reports no symptoms
Musculoskeletal: Reports no symptoms
Skin: Reports no symptoms
Neurological: Reports no symptoms
Endocrine: Reports no symptoms
Psychiatric: Reports no symptoms
Phy Exam
Physical Exam
Physical Exam:
Physical Exam
General: no apparent distress, not acutely ill
Neck: No jaundice
Heart: s1/s2 regular rate and rhythm, no murmur. equal radial pulses.
Lungs: no acute respiratory distress. clear bilaterally
Abdomen: Mild epigastric and right upper quadrant tenderness bowel sounds are present no lower abdominal tenderness
Neuro: alert and oriented. no focal neurological deficits
Skin: no rash
Psychiatric: well kept. interactive and cooperative
Extremities: no edema
Course
Orders/Labs/Results
Orders:
Orders
08/11/23 14:55
Electrocardiogram (*1) Urgent
Reason for Study: Abdominal Pain
EKG- Treatment ONCE
08/11/23 15:03
Complete Blood Count/With Diff Urgent
Comprehensive Metabolic Panel Urgent
Lipase Urgent
08/11/23 17:22
CT Abd/pelvis W Iv Cont Urgent
Comment:
Reason For Exam: pain nv
Morphine Sulfate 4 mg IV NOW STA
08/11/23 17:23
Ondansetron Injectable [Zofran] 4 mg IV NOW STA
08/11/23 17:28
0.9% Sodium Chloride 500 ml [Nss] 500 ml IV BOLUS
08/11/23 17:35
Troponin I Urgent
08/11/23 17:53
Acetaminophen 1000MG/100Ml [Ofirmev] 1,000 mg in 100 ml IV ONCE
Acetaminophen IV Indication:: ED Narcotic Naive Pt-ONCE
08/11/23 17:54
US Abdomen Complete/Upper Urgent
Comment:
Reason For Exam: pain
Abnormal Lab Results
08/11/23
15:03
RBC 3.57 L 10^6/uL
(4.70-6.10)
Hgb 11.5 L g/dL
(13.0-18.0)
Hct 31.7 L %
(39.0-52.0)
MCH 32.2 H pg
(27.0-31.0)
Absolute Lymphs (auto) 0.9 L 10^3/uL
(1.2-3.4)
Absolute Monos (auto) 0.7 H 10^3/uL
(0.1-0.6)
Neutrophils % 78.5 H %
(42.2-75.2)
Lymphocytes % 11.3 L %
(20.5-51.1)
Sodium 132 L mmol/L
(135-145)
Chloride 97 L mmol/L
(98-107)
BUN 34 H mg/dl
(9-20)
Creatinine 1.4 H mg/dL
(0.7-1.3)
Glucose 139 H mg/dl
(70-99)
08/11/23 15:03
08/11/23 15:03
Vital Signs
Initial and Last Documented VS:
Initial Vital Signs
Temp Pulse Resp BP Pulse Ox
98.1 F 82 16 171/85 98
08/11/23 14:52 08/11/23 14:52 08/11/23 14:52 08/11/23 14:52 08/11/23 14:52
Last Documented Vital Signs
Temp Pulse Resp BP Pulse Ox
98.1 F 62 13 158/70 98
08/11/23 14:52 08/11/23 20:06 08/11/23 20:06 08/11/23 20:06 08/11/23 14:52
MDM/Problems Addressed
Differential Diagnosis Includes:
Biliary colic duodenitis gastritis pancreatitis less likely bowel obstruction ACS
MDM/Problems Addressed:
Abdominal pain
Chronic conditions affecting care: CAD
Acute Exacerbation and/or Progression of Chronic Illness: CAD
*Radiology
Radiology exam reviewed: preliminary read by ED provider
*Pulse Oximetry
Patient hypoxic: no
*EKG
Interpreted by ED Provider?: Yes
Interpretation: normal
Comparison EKG: no comparison EKG present
Heart Rate: 70
Rate: normal
Rhythm: sinus
Ischemia: non-specific ST changes
*[employer] Fis[employer] Professor Interpretation
Rate: normal
Interpretation: normal
Heart Rate: 70
Rhythm: sinus
*Critical Care Note
Total Time (30-74mins, 75-104mins- exclusive of procedures): Not Applicable
Data Reviewed
Review of Other/Old Records Reveals: Labs and Records
Source: patient, records and spouse
Update Note
Update Note:
8:30 PM CAT scan ultrasound noted patient hungry. Stable for outpatient follow-up ER for worsening symptoms
ED Attending Note
-
Portions of this chart may have been created with voice recognition software.� Occasional wrong word or��sound alike� substitutions may have occurred due to the inherent limitations of voice recognition software.
Discharge Plan
Departure
Patient Disposition: Home (Routine Discharge)
Date of Disposition: 08/11/23
Time of Disposition: 20:30
Patient with high blood pressure during this ER visit?: No
Condition: Good
Discharge Problem:
Abdominal pain
Instructions: Abdominal Pain, Constipation, Adult (DC)
Prescriptions:
No Action
insulin aspart U-100 [Novolog FlexPen U-100 Insulin] 300 UNITS/3 ML insulin pen
5 - 8 units SC AC
Patient Comments:
SLIDING SCALE WITH BREAKFAST AND DINNER
Rx Instructions:
Sliding scale
zinc acetate 50 mg (zinc) Capsule
50 mg PO DAILY
acetaminophen 325 mg Tablet
650 mg PO Q4HPRN PRN (Reason: MILD PAIN) 30 Days Qty: 100 0RF
ascorbate calcium (vitamin C) 500 mg Tablet
500 mg PO DAILY
multivitamin Tablet
1 tab PO DAILY
coQ10 (ubiquinol) 100 mg Capsule
100 mg PO DAILY
Probiotic 3 billion cell Capsule
3,000 mmu cells PO DAILY
digestive enzymes Tablet
1 tab PO DAILY
Neuriva Original 100-100 mg Capsule
1 cap PO DAILY
lutein 20 mg Capsule
20 mg PO DAILY
curcumin-phosphatidylcholine 500 mg Capsule
50 mg PO DAILY
milk thistle
200 mg PO BID
olive leaf extract
1 cap PO DAILY
amlodipine 10 mg Tablet
10 mg PO DAILY Qty: 30 0RF
Rx Instructions:
Pleaes obtain refills from PCP/Cardiology
hydrochlorothiazide 25 mg Tablet
25 mg PO DAILY Qty: 30 0RF
Rx Instructions:
Pleaes obtain refills from PCP/Cardiology
amoxicillin-pot clavulanate 875-125 mg tablet
1 tab PO Q12H 7 Days Qty: 14 0RF
hydralazine 10 mg Tablet
10 mg PO DAILY
carvedilol 12.5 mg Tablet
12.5 mg PO DAILY
Levemir U-100 Insulin 100 unit/mL Solution
19 unit SC HS
polyethylene glycol 3350 [Miralax] 17 gram powder in packet
17 g PO BID Qty: 30 0RF
sennosides [Senokot] 8.6 mg tablet
8.6 mg PO HS Qty: 20 0RF
Linzess 290 mcg capsule
290 mcg PO DAILY Qty: 30 0RF
aspirin 81 mg Tablet,Delayed Release (Dr/Ec)
81 mg PO DAILY Qty: 30 0RF
Referrals:
Krishna Lock I., DO [Family Provider] -
Interventions
Interventions:
*Risk Screen - Suicide Last Done: 08/11/23 18:29
*General Assessment Last Done: 08/11/23 14:52
*Neglect/Abuse Screening Last Done: 08/11/23 18:29
*ED COVID-19 Vaccine History Last Done: 08/11/23 14:52
DP-Rlczge-Xfidcyddue Assessment Last Done: 08/11/23 18:29
Discharge Date and Time
Print Language: INDONESIAN
[2023-08-11 17:40] VITALS: BP 193/76
[2023-08-11] MEDS: NSS 500 IV (17:40)
[2023-08-11 18:12] LABS: Troponin I 0.017 ng/ml
[2023-08-11 18:22] VITALS: BP 180/68
[2023-08-11] MEDS: OFIRMEV 100 IV (18:24)
[2023-08-11] MEDS: ZOFRAN 4 MG IV (18:25)
[2023-08-11 18:26] VITALS: BMI 24.1
[2023-08-11 19:00] VITALS: BP 170/76
[2023-08-11 20:06] VITALS: BP 158/70
[2023-08-11 20:13] VITALS: BP 140/62
== END 2023-08-11 21:06 | disposition home or self-care (01) ==
LOC: EMR 14:50
PROVIDERS: Emergency Medicine; EMERGENCY PHYSICIAN Emergency Medicine; FAMILY PHYSICIAN Internal Medicine
DX: R10.9 Unspecified abdominal pain (principal); I25.10 Atherosclerotic heart disease of native coronary artery without angina pectoris
CPT/HCPCS: 99285; 96374; 96375; 74177; 76700; 80053; 83690; 84484; 85025; 93005; Q9967

== ENCOUNTER → 2023-09-03 09:18 | Outpatient (REF) | payer BC, SELFPAY ==
[2023-09-03 11:11] LABS: ALT (SGPT) 28 U/L (0-50); AST (SGOT) 30 U/L (17-59); HDL Cholesterol 70 mg/dl; LDL Cholesterol, Calculated 62 mg/dl; Total Cholesterol 163 mg/dl (50-199); Triglyceride 156 mg/dl (10-149); Very Low Density Lipoprotein 31 mg/dl (0-30)
[2023-09-03 20:29] LABS: Prolactin 10.9 ng/ml (3.7-17.9)
[2023-09-03 20:44] LABS: PSA, Total - Screen 1.98 ng/ml (0.0-4.0)
== END ==
LOC: REG 09:18
PROVIDERS: ATTENDING PHYSICIAN Nurse Practitioner; FAMILY PHYSICIAN Internal Medicine
DX: E78.5 Hyperlipidemia, unspecified (principal); N41.9 Inflammatory disease of prostate, unspecified; N62 Hypertrophy of breast
CPT/HCPCS: 36415; 80061; 84146; 84450; 84460; G0103

== ENCOUNTER → 2023-11-06 10:44 | Outpatient (REF) | payer BC, SELFPAY | LOC: RAD 10:44 | PROVIDERS: ATTENDING PHYSICIAN Internal Medicine Cardiovascular Disease; FAMILY PHYSICIAN Internal Medicine; REFERRING PHYSICIAN Surgery Vascular Surgery | DX: I73.9 Peripheral vascular disease, unspecified (principal) | CPT/HCPCS: 93922; 93925 ==

== ENCOUNTER → 2023-12-21 09:26 | Outpatient (REF) | payer BC, SELFPAY ==
[2023-12-21 10:26] LABS: % Basophils 0.7 % (0-2); % Eosinophils 2.9 % (0-6); % Immature Granulocytes 0.2 % (0-0.5); % Lymphocytes 15.9 % (20.5-51.1); % Monocytes 10.4 % (1.7-9.3); % Neutrophils 69.9 % (42.2-75.2); Absolute Eosinophils 0.2 10^3/uL (0-0.7); Absolute Lymphocytes 0.9 10^3/uL (1.2-3.4); Absolute Monocytes 0.6 10^3/uL (0.1-0.6); Absolute Neutrophils 3.8 10^3/uL (1.4-6.5); Hematocrit 32.7 % (39.0-52.0); Hemoglobin 11.4 g/dL (13.0-18.0); Mean Corp Hgb Conc. 34.9 g/dL (33.0-37.0); Mean Corpuscular Hgb 31.5 pg (27.0-31.0); Mean Corpuscular Volume 90.3 fL (80.0-94.0); Mean Platelet Volume 10.7 fL (7.4-10.4); Nucleated Red Blood Cells % 0 % (-); Platelet Count 239 10^3/uL (130-400); Red Blood Cell Count 3.62 10^6/uL (4.70-6.10); Red Cell Dist. Width 12.5 % (11.5-14.5); White Blood Cell Count 5.5 10^3/uL (4.8-10.8)
[2023-12-21 11:12] LABS: ALT (SGPT) 33 U/L (0-50); AST (SGOT) 39 U/L (17-59); Albumin 4.2 g/dl (3.5-5.0); Alkaline Phosphatase 89 U/L (38-126); Blood Urea Nitrogen 42 mg/dl (9-20); Calcium 9.2 mg/dl (8.4-10.2); Carbon Dioxide 25 mmol/L (22-30); Chloride 97 mmol/L (98-107); Glucose 136 mg/dl (70-99); HDL Cholesterol 85 mg/dl; LDL Cholesterol, Calculated 138 mg/dl; Potassium 4.2 mmol/L (3.5-5.1); Sodium 135 mmol/L (135-145); Total Bilirubin 0.4 mg/dl (0.2-1.3); Total Cholesterol 258 mg/dl (50-199); Total Protein 6.8 g/dl (6.3-8.2); Triglyceride 179 mg/dl (10-149); Very Low Density Lipoprotein 35 mg/dl (0-30)
[2023-12-21 12:20] LABS: Glycohemoglobin (HgbA1c) 7.7 % (4.0-5.6)
[2023-12-23 21:11] LABS: Arsenic, Blood <10.0 ug/L (<=12.0); Lead - Venous <2.0 ug/dL (<=4.9); Mercury, Blood <2.5 ug/L (<=10.0)
== END ==
LOC: REG 09:26
PROVIDERS: ATTENDING PHYSICIAN Internal Medicine
DX: I10 Essential (primary) hypertension (principal); E78.5 Hyperlipidemia, unspecified; E08.21 Diabetes mellitus due to underlying condition with diabetic nephropathy; E11.22 Type 2 diabetes mellitus with diabetic chronic kidney disease; N18.32 Chronic kidney disease, stage 3b
CPT/HCPCS: 36415; 80053; 80061; 82175; 83036; 83655; 83825; 85025

== ENCOUNTER → 2024-01-03 11:43 | Outpatient (REF) | payer BC, MEDICARE, SELFPAY | LOC: RAD 11:43 | PROVIDERS: ATTENDING PHYSICIAN Internal Medicine | DX: K59.09 Other constipation (principal); E08.21 Diabetes mellitus due to underlying condition with diabetic nephropathy; E11.22 Type 2 diabetes mellitus with diabetic chronic kidney disease | CPT/HCPCS: 74176 ==

== ENCOUNTER → 2024-02-04 09:05 | Outpatient (REF) | payer BC, MEDICARE, SELFPAY ==
[2024-02-04 09:37] LABS: % Basophils 0.6 % (0-2); % Eosinophils 2.1 % (0-6); % Immature Granulocytes 0.6 % (0-0.5); % Lymphocytes 16.7 % (20.5-51.1); % Monocytes 10.5 % (1.7-9.3); % Neutrophils 69.5 % (42.2-75.2); Absolute Eosinophils 0.1 10^3/uL (0-0.7); Absolute Lymphocytes 1.1 10^3/uL (1.2-3.4); Absolute Monocytes 0.7 10^3/uL (0.1-0.6); Absolute Neutrophils 4.6 10^3/uL (1.4-6.5); Hematocrit 33.7 % (39.0-52.0); Hemoglobin 11.7 g/dL (13.0-18.0); Mean Corp Hgb Conc. 34.7 g/dL (33.0-37.0); Mean Corpuscular Hgb 32.3 pg (27.0-31.0); Mean Corpuscular Volume 93.1 fL (80.0-94.0); Mean Platelet Volume 10.8 fL (7.4-10.4); Nucleated Red Blood Cells % 0 % (-); Platelet Count 206 10^3/uL (130-400); Red Blood Cell Count 3.62 10^6/uL (4.70-6.10); Red Cell Dist. Width 12.1 % (11.5-14.5); White Blood Cell Count 6.6 10^3/uL (4.8-10.8)
[2024-02-04 10:18] LABS: ALT (SGPT) 27 U/L (0-50); AST (SGOT) 29 U/L (17-59); Albumin 4.2 g/dl (3.5-5.0); Alkaline Phosphatase 85 U/L (38-126); Blood Urea Nitrogen 40 mg/dl (9-20); Calcium 9.2 mg/dl (8.4-10.2); Carbon Dioxide 27 mmol/L (22-30); Chloride 101 mmol/L (98-107); Glucose 152 mg/dl (70-99); HDL Cholesterol 90 mg/dl; LDL Cholesterol, Calculated 143 mg/dl; Potassium 4.4 mmol/L (3.5-5.1); Sodium 138 mmol/L (135-145); Total Bilirubin 0.3 mg/dl (0.2-1.3); Total Cholesterol 266 mg/dl (50-199); Total Protein 6.8 g/dl (6.3-8.2); Triglyceride 168 mg/dl (10-149); Very Low Density Lipoprotein 33 mg/dl (0-30); eGFR 37.12
[2024-02-04 12:33] LABS: Glycohemoglobin (HgbA1c) 8.1 % (4.0-5.6)
== END ==
LOC: REG 09:05
PROVIDERS: ATTENDING PHYSICIAN Internal Medicine
DX: E08.21 Diabetes mellitus due to underlying condition with diabetic nephropathy (principal); Z79.4 Long term (current) use of insulin; E78.5 Hyperlipidemia, unspecified; E64.9 Sequelae of unspecified nutritional deficiency
CPT/HCPCS: 36415; 80053; 80061; 83036; 85025

== ENCOUNTER → 2024-05-03 09:01 | Outpatient (REF) | payer BC, MEDICARE, SELFPAY ==
[2024-05-03 10:13] LABS: % Basophils 0.8 % (0-2); % Eosinophils 3.5 % (0-6); % Immature Granulocytes 0.6 % (0-0.5); % Lymphocytes 16.7 % (20.5-51.1); % Monocytes 10.4 % (1.7-9.3); Absolute Basophils 0.1 10^3/uL (0-0.2); Absolute Eosinophils 0.2 10^3/uL (0-0.7); Absolute Lymphocytes 1.1 10^3/uL (1.2-3.4); Absolute Monocytes 0.7 10^3/uL (0.1-0.6); Absolute Neutrophils 4.3 10^3/uL (1.4-6.5); Hematocrit 34.8 % (39.0-52.0); Hemoglobin 11.6 g/dL (13.0-18.0); Mean Corp Hgb Conc. 33.3 g/dL (33.0-37.0); Mean Corpuscular Hgb 31.1 pg (27.0-31.0); Mean Corpuscular Volume 93.3 fL (80.0-94.0); Mean Platelet Volume 11.2 fL (7.4-10.4); Nucleated Red Blood Cells % 0 % (-); Platelet Count 183 10^3/uL (130-400); Red Blood Cell Count 3.73 10^6/uL (4.70-6.10); Red Cell Dist. Width 11.9 % (11.5-14.5); White Blood Cell Count 6.4 10^3/uL (4.8-10.8)
[2024-05-03 10:28] LABS: ALT (SGPT) 24 U/L (0-50); AST (SGOT) 26 U/L (17-59); Albumin 3.6 g/dl (3.5-5.0); Alkaline Phosphatase 91 U/L (38-126); Blood Urea Nitrogen 55 mg/dl (9-20); Calcium 9.3 mg/dl (8.4-10.2); Carbon Dioxide 26 mmol/L (22-30); Chloride 102 mmol/L (98-107); Glucose 168 mg/dl (70-99); HDL Cholesterol 74 mg/dl; LDL Cholesterol, Calculated 123 mg/dl; Potassium 4.5 mmol/L (3.5-5.1); Sodium 136 mmol/L (135-145); Total Bilirubin 0.3 mg/dl (0.2-1.3); Total Cholesterol 226 mg/dl (50-199); Total Protein 6.2 g/dl (6.3-8.2); Triglyceride 146 mg/dl (10-149); Very Low Density Lipoprotein 29 mg/dl (0-30); eGFR 32.71
== END ==
LOC: REG 09:01
PROVIDERS: ATTENDING PHYSICIAN Internal Medicine
DX: E11.9 Type 2 diabetes mellitus without complications (principal); E78.5 Hyperlipidemia, unspecified; D64.9 Anemia, unspecified
CPT/HCPCS: 36415; 80053; 80061; 83036; 85025

== ENCOUNTER → 2024-05-19 10:14 | Outpatient (REF) | payer BC, MEDICARE, SELFPAY | LOC: RAD 10:14 | PROVIDERS: ATTENDING PHYSICIAN Internal Medicine | DX: I10 Essential (primary) hypertension (principal); M25.551 Pain in right hip; M54.50 Low back pain, unspecified | CPT/HCPCS: 72110; 73502 ==

== ENCOUNTER → 2024-07-03 12:49 | Outpatient (REF) | payer BC, SELFPAY | LOC: DHVS 12:49 | PROVIDERS: ATTENDING PHYSICIAN Surgery Vascular Surgery; FAMILY PHYSICIAN Internal Medicine | DX: I73.9 Peripheral vascular disease, unspecified (principal) | CPT/HCPCS: 93922; 93925 ==

== ENCOUNTER → 2024-08-06 10:45 | Outpatient (REF) | payer BC, SELFPAY | LOC: RAD 10:45 | PROVIDERS: ATTENDING PHYSICIAN Surgery Vascular Surgery; FAMILY PHYSICIAN Internal Medicine | DX: I65.23 Occlusion and stenosis of bilateral carotid arteries (principal) | CPT/HCPCS: 93880 ==

== ENCOUNTER → 2024-08-21 10:30 | Outpatient (REF) | payer BC, MEDICARE, SELFPAY | LOC: HWRAD 10:30 | PROVIDERS: ATTENDING PHYSICIAN Anesthesiology; FAMILY PHYSICIAN Internal Medicine | DX: M54.16 Radiculopathy, lumbar region (principal) | CPT/HCPCS: 72131 ==

== ENCOUNTER → 2024-08-29 08:29 | Outpatient (REF) | payer BC, SELFPAY ==
[2024-08-29 09:17] LABS: Hematocrit 35.6 % (39.0-52.0); Hemoglobin 12.1 g/dL (13.0-18.0); Mean Corp Hgb Conc. 34.0 g/dL (33.0-37.0); Mean Corpuscular Volume 93.4 fL (80.0-94.0); Nucleated Red Blood Cells % 0 % (-); Platelet Count 209 10^3/uL (130-400); Red Cell Dist. Width 12.3 % (11.5-14.5)
[2024-08-29 09:54] LABS: ALT (SGPT) 22 U/L (0-50); AST (SGOT) 25 U/L (17-59); Albumin 4.2 g/dl (3.5-5.0); Alkaline Phosphatase 86 U/L (38-126); Blood Urea Nitrogen 48 mg/dl (9-20); Calcium 8.9 mg/dl (8.4-10.2); Carbon Dioxide 24 mmol/L (22-30); Chloride 103 mmol/L (98-107); Glucose 185 mg/dl (70-99); HDL Cholesterol 76 mg/dl; LDL Cholesterol, Calculated 127 mg/dl; Potassium 4.5 mmol/L (3.5-5.1); Sodium 136 mmol/L (135-145); Total Protein 6.9 g/dl (6.3-8.2); Very Low Density Lipoprotein 32 mg/dl (0-30); eGFR 29.17
[2024-08-29 11:29] LABS: Glycohemoglobin (HgbA1c) 8.4 % (4.0-5.6)
== END ==
LOC: REG 08:29
PROVIDERS: ATTENDING PHYSICIAN Internal Medicine
DX: I10 Essential (primary) hypertension (principal); E78.5 Hyperlipidemia, unspecified; E11.21 Type 2 diabetes mellitus with diabetic nephropathy
CPT/HCPCS: 36415; 80053; 80061; 83036; 85025

== ENCOUNTER → 2024-10-28 10:10 | Outpatient (REF) | payer BC, SELFPAY | LOC: RCS 10:10 | PROVIDERS: ATTENDING PHYSICIAN Internal Medicine Cardiovascular Disease; FAMILY PHYSICIAN Internal Medicine | DX: R53.82 Chronic fatigue, unspecified (principal) | CPT/HCPCS: 93306 ==

== ENCOUNTER → 2024-11-14 13:19 | Outpatient (REF) | payer MEDICARE, BC, SELFPAY ==
[2024-11-14 13:56] LABS: Blood Urea Nitrogen 49 mg/dl (9-20); Calcium 8.8 mg/dl (8.4-10.2); Carbon Dioxide 23 mmol/L (22-30); Chloride 102 mmol/L (98-107); Glucose 135 mg/dl (70-99); Potassium 4.3 mmol/L (3.5-5.1); Sodium 132 mmol/L (135-145); eGFR 29.17
== END ==
LOC: REG 13:19
PROVIDERS: ATTENDING PHYSICIAN Internal Medicine Cardiovascular Disease; FAMILY PHYSICIAN Internal Medicine
DX: E11.22 Type 2 diabetes mellitus with diabetic chronic kidney disease (principal)
CPT/HCPCS: 36415; 80048

== ENCOUNTER 2024-12-22 10:16 | Emergency (ER) | payer BC, MEDICARE, SELFPAY ==
[2024-12-22 10:40] VITALS: BP 138/103
[2024-12-22 11:03] LABS: Hematocrit 32.3 % (39.0-52.0); Hemoglobin 11.3 g/dL (13.0-18.0); Mean Corp Hgb Conc. 35.0 g/dL (33.0-37.0); Mean Corpuscular Volume 91.5 fL (80.0-94.0); Nucleated Red Blood Cells % 0 % (-); Platelet Count 204 10^3/uL (130-400); Red Cell Dist. Width 12.6 % (11.5-14.5)
[2024-12-22 11:18] LABS: ALT (SGPT) 26 U/L (0-50); AST (SGOT) 29 U/L (17-59); Albumin 4.1 g/dl (3.5-5.0); Alkaline Phosphatase 85 U/L (38-126); Blood Urea Nitrogen 62 mg/dl (9-20); Calcium 9.2 mg/dl (8.4-10.2); Carbon Dioxide 23 mmol/L (22-30); Chloride 98 mmol/L (98-107); Glucose 215 mg/dl (70-99); Lipase 138 U/L (23-300); Potassium 4.5 mmol/L (3.5-5.1); Sodium 128 mmol/L (135-145); Total Protein 6.9 g/dl (6.3-8.2); eGFR 29.17
[2024-12-22 13:27] VITALS: BMI 23.9
[2024-12-22 13:38] VITALS: BP 217/93
[2024-12-22 13:44] VITALS: BP 222/82
--- NOTE | 2024-12-22 13:46 | ED.GENMED ---
History of Present Illness
General
Chief Complaint: Abdominal Pain
Source: patient
Exam Limitations: none
Time Seen by Provider: 12/22/24 13:46
Nursing documentation reviewed up to this point in time: agreed with
History of Present Illness
History of Present Illness:
Note:
CHIEF COMPLAINT(S)
Abdominal pain.
HISTORY OF PRESENT ILLNESS
The patient is an 83-year-old male who presents with a complaint of abdominal pain for the past few days. He describes the pain as a burning sensation around the umbilicus. The patient mentions a bulge in the abdomen which seems suggestive of a
hernia and confirms he has experienced this before. He notes that he experiences increased pain during eating. The patient has seen a senior director of global commercial technology solutions, and medication has been prescribed, though no endoscopy was performed due to the patients age.
The patient reports nausea but denies vomiting, and he mentions infrequent bowel movements, with the last one requiring enemas.
PAST MEDICAL AND SURGICAL HISTORY
The patient has a known hernia. He also reported issues with his kidneys which restricts the use of contrast in imaging.
PHYSICAL EXAM
General: Alert, no acute distress.
Skin: Warm, dry.
Head: Normocephalic, atraumatic.
Neck: Supple, trachea midline.
Eye Ears, nose, mouth and throat: Oral mucosa moist.
Cardiovascular: Normal peripheral perfusion, No edema.
Respiratory: Respirations are non-labored.
Gastrointestinal: Visible bulge in the abdomen suggestive of hernia. Abdomen nondistended.
Back: Normal range of motion, normal alignment.
Musculoskeletal: Normal ROM, normal strength.
Neurological: Alert and oriented to person, place, time, and situation, No focal neurological deficit observed.
Psychiatric: Cooperative, appropriate mood & affect.
PROBLEM LIST
Acute:
- Abdominal pain
- Suspected abdominal hernia
PLAN
1. Order non-contrast CT scan to evaluate the abdominal pain and check for complications related to the hernia and any possible intestinal obstruction.
2. Review recent blood work to assess kidney function and other pertinent factors.
3. Conduct a urinalysis.
4. Discuss with a surgeon regarding the necessity of any surgical intervention for the hernia in case of severe symptoms or complications.
DIFFERENTIAL DIAGNOSIS
The Differential Diagnosis includes, in no particular order and is not limited to:
- Hernia with possible incarceration or strangulation
- Partial bowel obstruction
- Gastroesophageal reflux disease
- Pancreatitis
- Peptic ulcer disease
- Acute appendicitis
- Cholecystitis
- Diverticulitis
- Mesenteric ischemia
- Abdominal aortic aneurysm
CARE-UPDATE
12/22/24 - 16:32
CT results indicate moderate bilateral involvement. No additional significant findings were noted. Lab results returned with no abnormalities. The patients chronic kidney disease remains stable, qualifying them for discharge. Instructed to follow up
with [facility]. Advised to resume Miralax and will administer a dose of magnesium citrate.
Disposition:
SUMMARY OF ENCOUNTER
The patient is an 83-year-old male who presented to the emergency department with abdominal pain, described as a burning sensation around the umbilicus, and a noticeable bulge suggestive of a hernia. He reported increased pain during eating and
infrequent bowel movements, requiring enemas. Given his history of chronic kidney disease, imaging without contrast was necessary. A non-contrast CT scan was conducted to evaluate for hernia complications or possible intestinal obstruction.
DISPOSITION
Discharge.
PLAN
The plan included ordering a non-contrast CT scan to evaluate the abdominal pain and manage potential hernia complications. The recent blood work was reviewed to assess kidney function, which showed no abnormalities, indicating stable chronic kidney
disease. The patient was advised to resume Miralax and was given a dose of magnesium citrate for constipation management.
INDEPENDENT REVIEW OF LABS AND INTERPRETATION OF TESTS
My independent review indicates no lab abnormalities, confirming stable chronic kidney disease.
MEDICATION RECONCILIATION
Administered magnesium citrate for constipation relief.
MEDICAL DECISION MAKING
-Complexity of Data Reviewed: Chronic conditions affecting care: hernia, chronic kidney disease.
DDx list: Hernia with possible incarceration or strangulation, partial bowel obstruction, gastroesophageal reflux disease, pancreatitis, peptic ulcer disease, acute appendicitis, cholecystitis, diverticulitis, mesenteric ischemia, abdominal aortic
aneurysm.
-Data:
Category 1: Non-emergency department records reviewed included recent lab work and kidney function evaluation supporting discharge.
Category 2: My independent interpretation of CT scan revealed moderate bilateral involvement without significant findings.
-Risk: Consideration of Admission/Observation: Escalation of care including admission/observation was considered given the complexity and risk of the patients presenting complaint, exam findings, and their underlying comorbidities. However,
ultimately, I feel the patient is safe for outpatient management with close follow-up. Reasoning: Work-up was reassuring, with no acute life/organ-threatening processes revealed, patients symptoms well controlled upon reevaluation, reexamination is
reassuring, vitals are stable, patient agreeable with discharge, reliable for follow-up. Prescription medication was prescribed (magnesium citrate).
DIAGNOSIS
-Constipation (ICD-10: K59.00)
-Abdominal pain, unspecified site (ICD-10: R10.9)
Past History
Past History
ED Past Medical History: CAD, CVA (History of TIA.), GERD, HTN, IDDM, Renal failure and Valvular disease
ED Past Surgical History: Cardiac (CABG), Orthopedic and Tonsilectomy
Social History
Tobacco: Non-smoker
Alcohol: Occasional
Drug: None
Personal:
Living: with family
Employment: Retired
Family History
Family History: Other (Noncontributory)
Phy Exam
Physical Exam
Physical Exam:
.
Course
Orders/Labs/Results
Orders:
Orders
12/22/24 10:41
Electrocardiogram (*1) Urgent
Reason for Study: Abdominal Pain
EKG- Treatment ONCE
12/22/24 10:51
Complete Blood Count/With Diff Urgent
Comprehensive Metabolic Panel Urgent
Lipase Urgent
12/22/24 13:54
CT Abd/pel Without Iv Or Oral Urgent
Comment:
Reason For Exam: epigastric pain 3 days
12/22/24 14:25
Urinalysis Reflex To Culture Urgent
Date Specimen was Collected: 12/22/24
Time Specimen was Collected: 14:23
Urine Microscopic Reflex Cult Urgent
12/22/24 16:36
Magnesium Citrate [Citroma] 300 ml PO ONCE ONE
Abnormal Lab Results
12/22/24 12/22/24
10:51 14:25
RBC 3.53 L 10^6/uL
(4.70-6.10)
Hgb 11.3 L g/dL
(13.0-18.0)
Hct 32.3 L %
(39.0-52.0)
MCH 32.0 H pg
(27.0-31.0)
Abs Immat Gran (auto) 0.1 H 10^3/uL
(0-0.05)
Absolute Lymphs (auto) 0.8 L 10^3/uL
(1.2-3.4)
Absolute Monos (auto) 0.7 H 10^3/uL
(0.1-0.6)
Immature Gran % 1.2 H %
(0-0.5)
Neutrophils % 77.9 H %
(42.2-75.2)
Lymphocytes % 10.2 L %
(20.5-51.1)
Sodium 128 L mmol/L
(135-145)
BUN 62 H mg/dl
(9-20)
Creatinine 2.2 H mg/dL
(0.7-1.3)
Glucose 215 H mg/dl
(70-99)
Ur Occult Blood Reflex 1+ A
(Negative)
Urine RBC 3-6 A /HPF
(0-2)
Urine Bacteria (Reflex) Few A
(Negative)
Urine Glucose 2+ A
(Negative)
Urine Albumin (Reflex) 3+ A
(Neg - Trace)
12/22/24 10:51
12/22/24 10:51
Vital Signs
Initial and Last Documented VS:
Initial Vital Signs
Temp Pulse Resp BP Pulse Ox
98.4 F 70 19 138/103 98
12/22/24 10:40 12/22/24 10:40 12/22/24 10:40 12/22/24 10:40 12/22/24 10:40
Last Documented Vital Signs
Temp Pulse Resp BP Pulse Ox
98.4 F 74 19 188/82 96
12/22/24 10:40 12/22/24 16:16 12/22/24 16:16 12/22/24 16:00 12/22/24 16:00
*Pulse Oximetry
SaO2: 98
Oxygen Mode of Delivery: Room air
Patient hypoxic: no
*Critical Care Note
Total Time (30-74mins, 75-104mins- exclusive of procedures): Not Applicable
ED Attending Note
-
Portions of this chart may have been created with voice recognition software.� Occasional wrong word or��sound alike� substitutions may have occurred due to the inherent limitations of voice recognition software.
Discharge Plan
Departure
Patient Disposition: Home (Routine Discharge)
Date of Disposition: 12/22/24
Time of Disposition: 16:26
Patient with high blood pressure during this ER visit?: Yes
Condition: Good
Discharge Problem:
Constipation, Abdominal pain
Instructions: Constipation, Adult (DC), Abdominal Pain, BLOOD PRESSURE
Prescriptions:
No Action
insulin aspart U-100 [Novolog FlexPen U-100 Insulin] 300 UNITS/3 ML insulin pen
5 - 8 sliding scale dose SC AC
zinc acetate 50 mg (zinc) Capsule
50 mg PO DAILY
acetaminophen 325 mg Tablet
650 mg PO Q4HPRN PRN (Reason: MILD PAIN) 30 Days Qty: 100 0RF
ascorbate calcium (vitamin C) 500 mg Tablet
500 mg PO DAILY
coQ10 (ubiquinol) 100 mg Capsule
100 mg PO DAILY
Neuriva Original 100-100 mg Capsule
1 cap PO DAILY
milk thistle 150 mg Capsule
150 mg PO DAILY Qty: 0
lutein 20 mg Capsule
20 mg PO DAILY
olive leaf extract 250 mg Capsule
250 mg PO DAILY Qty: 0
curcumin-phosphatidylcholine 500 mg Capsule
50 mg PO DAILY
digestive enzymes Capsule
1 cap PO DAILY
Theragen Tablet
1 tab PO DAILY
tamsulosin [Flomax] 0.4 mg Capsule
0.4 mg PO HS
candesartan 8 mg Tablet
4 mg PO DAILY
insulin glargine [Basaglar KwikPen U-100 Insulin] 100 unit/mL (3 mL) Insulin Pen
20 unit SC HS
famotidine [Pepcid] 40 mg tablet
40 mg PO HS
aspirin 81 mg tablet,delayed release (DR/EC)
81 mg PO DAILY
hydrochlorothiazide 25 mg tablet
25 mg PO DAILY
polyethylene glycol 3350 [Miralax] 17 gram/dose powder
17 g PO DAILY
Visbiome 112.5 billion cell Capsule
1 cap PO DAILY
Referrals:
Krishna Lock I., DO [Family Provider, Internal Medicine]
Interventions
Interventions:
*Risk Screen - Suicide Last Done: 12/22/24 10:39
*General Assessment Last Done: 12/22/24 13:28
*Neglect/Abuse Screening Last Done: 12/22/24 10:39
*ED- Fall Risk Assessment Last Done: 12/22/24 10:39
*ED COVID-19 Vaccine History Last Done: 12/22/24 13:28
*ED Influenza Vaccine History Last Done: 12/22/24 13:28
*Nursing Disposition Last Done: 12/22/24 16:58
DZ-Tnhywn-Xhpujecvut Assessment Last Done: 12/22/24 13:38
Discharge Date and Time
Discharge Date/Time: 12/22/24 16:58
Print Language: MONGOLIAN
--- NOTE | 2024-12-22 13:57 | EDRN ---
Dr. Mondragon in to see pt.
[2024-12-22 14:00] VITALS: BP 207/78
--- NOTE | 2024-12-22 14:28 | EDRN ---
Urine spec obtained and sent.
[2024-12-22 15:07] LABS: Urine Character Clear (Clear)
[2024-12-22 15:18] LABS: Urine Squamous Cell 0-2 /LPF (Few); Urine White Cell 0-2 /HPF (0-5)
[2024-12-22 15:21] VITALS: BP 179/89
--- NOTE | 2024-12-22 15:25 | EDRN ---
Pt OOB to BR at this time.
[2024-12-22 16:00] VITALS: BP 188/82
--- NOTE | 2024-12-22 16:20 | EDRN ---
Osiris Wilburn VACATION PLANNER in room w/ pt at this time. Osiris Wilburn PROCESS IMPROVEMENT ENGINEER palpated area in neck just under ears and neck and area was painful to palpation and tender.
[2024-12-22] MEDS: CITROMA 300 ML PO (16:53)
== END 2024-12-22 16:58 | disposition home or self-care (01) ==
LOC: EMR 10:16
PROVIDERS: Emergency Medicine; EMERGENCY PHYSICIAN Emergency Medicine; FAMILY PHYSICIAN Internal Medicine
DX: K59.00 Constipation, unspecified (principal); R10.9 Unspecified abdominal pain; E11.9 Type 2 diabetes mellitus without complications; I10 Essential (primary) hypertension; I25.10 Atherosclerotic heart disease of native coronary artery without angina pectoris; Z86.73 Personal history of transient ischemic attack (TIA), and cerebral infarction without residual deficits; Z95.1 Presence of aortocoronary bypass graft
CPT/HCPCS: 99284; 74176; 80053; 81003; 81015; 83690; 85025; 93005

== ENCOUNTER → 2025-01-17 07:53 | Outpatient (REF) | payer BC, MEDICARE, SELFPAY ==
[2025-01-17 08:46] LABS: Hematocrit 31.8 % (39.0-52.0); Hemoglobin 11.0 g/dL (13.0-18.0); Mean Corp Hgb Conc. 34.6 g/dL (33.0-37.0); Mean Corpuscular Volume 92.7 fL (80.0-94.0); Nucleated Red Blood Cells % 0 % (-); Platelet Count 231 10^3/uL (130-400); Red Cell Dist. Width 12.6 % (11.5-14.5)
[2025-01-17 09:24] LABS: ALT (SGPT) 25 U/L (0-50); AST (SGOT) 26 U/L (17-59); Albumin 4.1 g/dl (3.5-5.0); Alkaline Phosphatase 78 U/L (38-126); Blood Urea Nitrogen 51 mg/dl (9-20); Calcium 9.1 mg/dl (8.4-10.2); Carbon Dioxide 25 mmol/L (22-30); Chloride 102 mmol/L (98-107); Glucose 205 mg/dl (70-99); HDL Cholesterol 76 mg/dl; LDL Cholesterol, Calculated 153 mg/dl; Potassium 4.6 mmol/L (3.5-5.1); Sodium 132 mmol/L (135-145); Total Protein 7.0 g/dl (6.3-8.2); Very Low Density Lipoprotein 44 mg/dl (0-30); eGFR 27.49
[2025-01-17 09:42] LABS: Glycohemoglobin (HgbA1c) 8.8 % (4.0-5.9)
== END ==
LOC: REG 07:53
PROVIDERS: ATTENDING PHYSICIAN Internal Medicine
DX: N18.32 Chronic kidney disease, stage 3b (principal); D64.9 Anemia, unspecified; I25.10 Atherosclerotic heart disease of native coronary artery without angina pectoris; E11.65 Type 2 diabetes mellitus with hyperglycemia; I10 Essential (primary) hypertension; E78.2 Mixed hyperlipidemia
CPT/HCPCS: 36415; 80053; 80061; 83036; 84443; 85025